=== PATIENT | female | born 1955 | race Caucasian/White ===

== ENCOUNTER 2017-11-10 17:24 | Emergency (ER) | payer OTHER, BC ==
[2017-11-10 20:48] LABS: BASO # 0.1 10^3/uL (0.0-0.2); BASO % 0.6 % (0.0-1.0); EOS # 0.2 10^3/uL (0.0-0.50); EOS % 2.7 % (0.0-3.0); HEMATOCRIT 40.5 % (36.0-47.0); HEMOGLOBIN 13.5 g/dl (12.0-16.0); IMMATURE GRANULOCYTE % 0.4 % (0-0); LYMPH # 1.5 10^3/uL (1.5-4.5); LYMPH % 17.9 % (24.0-44.0); MEAN CORPUSCULAR HEMOGLOBIN 28.8 pg (27.0-33.0); MEAN CORPUSCULAR HGB CONC 33.3 g/dl (32.0-36.5); MEAN CORPUSCULAR VOLUME 86.4 fl (80.0-96.0); MONO # 0.6 10^3/uL (0.0-0.8); MONO % 6.6 % (0.0-5.0); NEUTROPHILS # 6.1 10^3/uL (1.8-7.7); NEUTROPHILS % 71.8 % (36.0-66.0); PLATELET COUNT, AUTOMATED 262 10^3/uL (150-450); RED BLOOD COUNT 4.69 10^6/uL (4.00-5.40); RED CELL DISTRIBUTION WIDTH 13.3 % (11.5-14.5); WHITE BLOOD COUNT 8.4 10^3/uL (4.0-10.0)
[2017-11-10 21:23] LABS: ALBUMIN/GLOBULIN RATIO 1.14 (1.00-1.93); ALKALINE PHOSPHATASE 99 U/L (45-117); ALT/SGPT 28 U/L (12-78); ANION GAP 5 MEQ/L (8-16); AST/SGOT 18 U/L (7-37); BILIRUBIN,DIRECT 0.1 MG/DL (0.0-0.2); BILIRUBIN,TOTAL 0.5 MG/DL (0.2-1.0); BLOOD UREA NITROGEN 17 MG/DL (7-18); CARBON DIOXIDE LEVEL 32 MEQ/L (21-32); CHLORIDE LEVEL 103 MEQ/L (98-107); CREATININE FOR GFR 0.68 MG/DL (0.55-1.02); GLOMERULAR FILTRATION RATE > 60.0 (>45); GLUCOSE, FASTING 115 MG/DL (80-110); LIPASE 80 U/L (73-393); POTASSIUM SERUM 3.8 MEQ/L (3.5-5.1); SODIUM LEVEL 140 MEQ/L (136-145); TOTAL PROTEIN 7.5 GM/DL (6.4-8.2)
[2017-11-10 21:55] LABS: BASO % 0.5 % (0.0-1.0); EOS # 0.2 10^3/uL (0.0-0.50); EOS % 2.2 % (0.0-3.0); HEMATOCRIT 40.6 % (36.0-47.0); HEMOGLOBIN 13.7 g/dl (12.0-16.0); IMMATURE GRANULOCYTE % 0.4 % (0-0); LYMPH # 1.3 10^3/uL (1.5-4.5); LYMPH % 15.5 % (24.0-44.0); MEAN CORPUSCULAR HEMOGLOBIN 28.7 pg (27.0-33.0); MEAN CORPUSCULAR HGB CONC 33.7 g/dl (32.0-36.5); MEAN CORPUSCULAR VOLUME 85.1 fl (80.0-96.0); MONO # 0.5 10^3/uL (0.0-0.8); MONO % 5.6 % (0.0-5.0); NEUTROPHILS # 6.3 10^3/uL (1.8-7.7); NEUTROPHILS % 75.8 % (36.0-66.0); PLATELET COUNT, AUTOMATED 268 10^3/uL (150-450); RED BLOOD COUNT 4.77 10^6/uL (4.00-5.40); RED CELL DISTRIBUTION WIDTH 13.2 % (11.5-14.5); WHITE BLOOD COUNT 8.3 10^3/uL (4.0-10.0)
[2017-11-10] MEDS: ONDANSETRON 4MG/2ML VIAL (J2405) IV (22:05)
[2017-11-10] MEDS: MORPHINE 2 MG/ML 1ML SYRINGE IV ×2 (22:05→23:45)
[2017-11-10 22:09] LABS: INR 0.96; PROTHROMBIN TIME 12.9 SECONDS (12.4-14.5)
[2017-11-10] MEDS: NS 1,000 ML IV (22:11)
[2017-11-10 22:19] LABS: ALBUMIN 3.9 GM/DL (3.2-5.2); ALKALINE PHOSPHATASE 98 U/L (45-117); ALT/SGPT 27 U/L (12-78); AMYLASE 36 U/L (25-115); ANION GAP 6 MEQ/L (8-16); AST/SGOT 18 U/L (7-37); BILIRUBIN,DIRECT < 0.1 MG/DL (0.0-0.2); BILIRUBIN,TOTAL 0.5 MG/DL (0.2-1.0); BLOOD UREA NITROGEN 17 MG/DL (7-18); CALCIUM LEVEL 8.9 MG/DL (8.8-10.2); CARBON DIOXIDE LEVEL 29 MEQ/L (21-32); CHLORIDE LEVEL 104 MEQ/L (98-107); CK-MB VALUE MASS 1.3 NG/ML (0.0-3.6); CPK CREATINE PHOSPHOKINASE 72 U/L (26-192); CREATININE FOR GFR 0.62 MG/DL (0.55-1.02); GLOMERULAR FILTRATION RATE > 60.0 (>45); GLUCOSE, FASTING 117 MG/DL (80-110); LIPASE 81 U/L (73-393); POTASSIUM SERUM 3.3 MEQ/L (3.5-5.1); SODIUM LEVEL 139 MEQ/L (136-145); TOTAL PROTEIN 7.8 GM/DL (6.4-8.2); TROPONIN I 0.11 NG/ML (< 0.10)
[2017-11-10] MEDS: ASPIRIN 325 MG TAB PO (23:04)
[2017-11-11] MEDS ORDERED: HYDROmorphone HCL 1 MG/ML SYRINGE (J1170) As Ordered (02:07)
[2017-11-11 03:15] LABS: CK-MB VALUE MASS 1.2 NG/ML (0.0-3.6); CPK CREATINE PHOSPHOKINASE 62 U/L (26-192); MB/CK RELATIVE INDEX 1.93 (< OR =4)
== END 2017-11-11 04:09 | disposition home or self-care (01) ==
LOC: M ED 11-11 04:09
DX: K80.20 Calculus of gallbladder without cholecystitis without obstruction (principal); R11.0 Nausea; J45.909 Unspecified asthma, uncomplicated; R00.1 Bradycardia, unspecified; Z79.899 Other long term (current) drug therapy; Z79.51 Long term (current) use of inhaled steroids; Z88.1 Allergy status to other antibiotic agents; Z88.8 Allergy status to other drugs, medicaments and biological substances
CPT/HCPCS: J1170

== ENCOUNTER 2017-12-11 19:46 | Inpatient (IN) | payer OTHER ==
[2017-12-11] MEDS: ONDANSETRON 4MG/2ML VIAL (J2405) IV ×2 (20:28→22:58)
[2017-12-11] MEDS: MORPHINE 4 MG/ML 1ML VIAL (J2270) IV (20:28)
[2017-12-11 20:34] LABS: BASO # 0.1 10^3/uL (0.0-0.2); BASO % 0.7 % (0.0-1.0); EOS # 0.2 10^3/uL (0.0-0.50); EOS % 3.5 % (0.0-3.0); HEMATOCRIT 42.1 % (36.0-47.0); HEMOGLOBIN 14.5 g/dl (12.0-16.0); IMMATURE GRANULOCYTE % 0.4 % (0-3.0); LYMPH # 1.6 10^3/uL (1.5-4.5); LYMPH % 23.1 % (24.0-44.0); MEAN CORPUSCULAR HEMOGLOBIN 29.1 pg (27.0-33.0); MEAN CORPUSCULAR HGB CONC 34.4 g/dl (32.0-36.5); MEAN CORPUSCULAR VOLUME 84.4 fl (80.0-96.0); MONO # 0.6 10^3/uL (0.0-0.8); NEUTROPHILS # 4.4 10^3/uL (1.8-7.7); NEUTROPHILS % 63.3 % (36.0-66.0); PLATELET COUNT, AUTOMATED 305 10^3/uL (150-450); RED BLOOD COUNT 4.99 10^6/uL (4.00-5.40); RED CELL DISTRIBUTION WIDTH 14.1 % (11.5-14.5); WHITE BLOOD COUNT 6.9 10^3/uL (4.0-10.0)
[2017-12-11 20:58] LABS: ALKALINE PHOSPHATASE 271 U/L (45-117); ALT/SGPT 476 U/L (12-78); ANION GAP 11 MEQ/L (8-16); AST/SGOT 199 U/L (7-37); BILIRUBIN,DIRECT 3.5 MG/DL (0.0-0.2); BLOOD UREA NITROGEN 17 MG/DL (7-18); CALCIUM LEVEL 9.9 MG/DL (8.8-10.2); CARBON DIOXIDE LEVEL 26 MEQ/L (21-32); CHLORIDE LEVEL 99 MEQ/L (98-107); CREATININE FOR GFR 0.83 MG/DL (0.55-1.30); GLOMERULAR FILTRATION RATE > 60.0 (>45); GLUCOSE, FASTING 133 MG/DL (70-100); LIPASE 75 U/L (73-393); POTASSIUM SERUM 3.5 MEQ/L (3.5-5.1); SODIUM LEVEL 136 MEQ/L (136-145)
[2017-12-11 21:03] LABS: BILIRUBIN,TOTAL 4.4 MG/DL (0.2-1.0)
[2017-12-12] MEDS ORDERED: MORPHINE 4 MG/ML 1ML VIAL (J2270) IV (00:45)
[2017-12-12] MEDS: AMPICILLIN SOD/SULBACTAM SOD 3 GM in D5W MINI-BAG PLUS 100 ML IV ×4 (02:03→20:00)
[2017-12-12] MEDS: LR 1,000 ML IV ×2 (03:49→13:06)
[2017-12-12] MEDS: LEVOTHYROXINE 150MCG TABLET (0.15MG) PO (06:25)
[2017-12-12 08:11] LABS: ALBUMIN 3.3 GM/DL (3.2-5.2); ALBUMIN/GLOBULIN RATIO 1.03 (1.00-1.93); ALKALINE PHOSPHATASE 216 U/L (45-117); ALT/SGPT 387 U/L (12-78); ANION GAP 10 MEQ/L (8-16); AST/SGOT 164 U/L (7-37); BILIRUBIN,TOTAL 2.6 MG/DL (0.2-1.0); BLOOD UREA NITROGEN 17 MG/DL (7-18); CALCIUM LEVEL 8.7 MG/DL (8.8-10.2); CARBON DIOXIDE LEVEL 30 MEQ/L (21-32); CHLORIDE LEVEL 100 MEQ/L (98-107); CREATININE FOR GFR 0.71 MG/DL (0.55-1.30); GLOMERULAR FILTRATION RATE > 60.0 (>45); GLUCOSE, FASTING 100 MG/DL (70-100); SODIUM LEVEL 140 MEQ/L (136-145); TOTAL PROTEIN 6.5 GM/DL (6.4-8.2)
[2017-12-12] MEDS: ADVAIR HFA 230/21MCG INHALER INH (09:00)
[2017-12-12] MEDS: ACETAMINOPHEN TAB 650MG DOSE (2X325MG) PO (13:15)
[2017-12-12] MEDS: ONDANSETRON 4MG/2ML VIAL (J2405) IV (19:59)
[2017-12-12] MEDS: KETOROLAC 30 MG/ML VIAL (J1885) IV (19:59)
[2017-12-12] MEDS: MORPHINE 4 MG/ML 1ML VIAL (J2270) IV (21:25)
[2017-12-13] MEDS: LR 1,000 ML IV ×4 (02:11→17:15)
[2017-12-13] MEDS: AMPICILLIN SOD/SULBACTAM SOD 3 GM in D5W MINI-BAG PLUS 100 ML IV ×4 (02:11→20:50)
[2017-12-13] MEDS: METOCLOPRAMIDE INJ 10MG/2ML VIAL (J2765) IV (02:23)
[2017-12-13] MEDS: LEVOTHYROXINE 150MCG TABLET (0.15MG) PO (06:51)
[2017-12-13] MEDS: ADVAIR HFA 230/21MCG INHALER INH (08:10)
[2017-12-13 08:34] LABS: HEMATOCRIT 40.1 % (36.0-47.0); HEMOGLOBIN 13.3 g/dl (12.0-16.0); MEAN CORPUSCULAR HEMOGLOBIN 28.7 pg (27.0-33.0); MEAN CORPUSCULAR HGB CONC 33.2 g/dl (32.0-36.5); MEAN CORPUSCULAR VOLUME 86.4 fl (80.0-96.0); PLATELET COUNT, AUTOMATED 239 10^3/uL (150-450); RED BLOOD COUNT 4.64 10^6/uL (4.00-5.40)
[2017-12-13 09:00] LABS: ALBUMIN 3.2 GM/DL (3.2-5.2); ALBUMIN/GLOBULIN RATIO 0.97 (1.00-1.93); ALKALINE PHOSPHATASE 243 U/L (45-117); ALT/SGPT 366 U/L (12-78); ANION GAP 8 MEQ/L (8-16); AST/SGOT 180 U/L (7-37); BLOOD UREA NITROGEN 15 MG/DL (7-18); CALCIUM LEVEL 8.8 MG/DL (8.8-10.2); CARBON DIOXIDE LEVEL 32 MEQ/L (21-32); CHLORIDE LEVEL 102 MEQ/L (98-107); GLOMERULAR FILTRATION RATE > 60.0 (>45); GLUCOSE, FASTING 91 MG/DL (70-100); POTASSIUM SERUM 3.4 MEQ/L (3.5-5.1); SODIUM LEVEL 142 MEQ/L (136-145); TOTAL PROTEIN 6.5 GM/DL (6.4-8.2)
[2017-12-13] MEDS: ONDANSETRON 4MG/2ML VIAL (J2405) IV (09:20)
[2017-12-13] MEDS: MORPHINE 4 MG/ML 1ML VIAL (J2270) IV (09:21)
[2017-12-13] MEDS ORDERED: SCOPOLAMINE 1MG TRANSDERMAL PATCH As Ordered (15:37)
[2017-12-13] MEDS: SCOPOLAMINE 1MG TRANSDERMAL PATCH TOP (15:56)
[2017-12-13] MEDS ORDERED: fentaNYL 100 MCG/2 ML INJECTION (J3010) As Ordered (16:11)
[2017-12-13] MEDS ORDERED: ROCURONIUM BROMIDE 50 MG/5 ML VIAL As Ordered (16:11)
[2017-12-13] MEDS ORDERED: PROPOFOL 200 MG/20 ML VIAL As Ordered (16:11)
[2017-12-13] MEDS ORDERED: MIDAZOLAM INJ 2 MG/2 ML VIAL (J2250) As Ordered (16:11)
[2017-12-13] MEDS ORDERED: LIDOCAINE 2% INJ 100 MG/5 ML SDV (FOR ANES.) As Ordered (16:11)
[2017-12-13] MEDS ORDERED: SUCCINYLCHOLINE 100 MG/5 ML SYRINGE (J0330) As Ordered ×2 (16:12→16:24)
[2017-12-13] MEDS: ISOVUE-300 61% 50ML VIAL (Q9967) As Ordered (16:24)
[2017-12-13] MEDS ORDERED: ONDANSETRON 4MG/2ML VIAL (J2405) As Ordered (16:40)
[2017-12-13] MEDS ORDERED: NEOSTIGMINE 10 MG/10 ML VIAL (J2710) As Ordered (16:40)
[2017-12-13] MEDS ORDERED: GLYCOPYRROLATE INJ 0.2 MG/ML 2 ML VIAL As Ordered (16:40)
[2017-12-13] MEDS ORDERED: PERCOCET 5MG/325MG TAB PO (17:15)
[2017-12-13] MEDS ORDERED: fentaNYL 100 MCG/2 ML INJECTION (J3010) IV (17:15)
[2017-12-13] MEDS ORDERED: METOCLOPRAMIDE INJ 10MG/2ML VIAL (J2765) IV (17:15)
[2017-12-13] MEDS ORDERED: ONDANSETRON 4MG/2ML VIAL (J2405) IV (17:15)
[2017-12-13] MEDS ORDERED: KETOROLAC 30 MG/ML VIAL (J1885) As Ordered (17:29)
[2017-12-13] MEDS: KETOROLAC 30 MG/ML VIAL (J1885) IV (17:45)
[2017-12-14] MEDS: LR 1,000 ML IV ×5 (00:42→21:46)
[2017-12-14] MEDS: AMPICILLIN SOD/SULBACTAM SOD 3 GM in D5W MINI-BAG PLUS 100 ML IV ×4 (02:59→20:19)
[2017-12-14] MEDS: LEVOTHYROXINE 150MCG TABLET (0.15MG) PO (06:15)
[2017-12-14] MEDS: ADVAIR HFA 230/21MCG INHALER INH (07:54)
[2017-12-14] MEDS: ONDANSETRON 4MG/2ML VIAL (J2405) IV (08:19)
[2017-12-14 08:44] LABS: ALBUMIN/GLOBULIN RATIO 0.91 (1.00-1.93); ALKALINE PHOSPHATASE 246 U/L (45-117); ALT/SGPT 341 U/L (12-78); ANION GAP 8 MEQ/L (8-16); AST/SGOT 189 U/L (7-37); BILIRUBIN,TOTAL 2.9 MG/DL (0.2-1.0); BLOOD UREA NITROGEN 18 MG/DL (7-18); CALCIUM LEVEL 8.8 MG/DL (8.8-10.2); CARBON DIOXIDE LEVEL 32 MEQ/L (21-32); CHLORIDE LEVEL 101 MEQ/L (98-107); CREATININE FOR GFR 0.58 MG/DL (0.55-1.30); GLOMERULAR FILTRATION RATE > 60.0 (>45); GLUCOSE, FASTING 96 MG/DL (70-100); POTASSIUM SERUM 3.4 MEQ/L (3.5-5.1); SODIUM LEVEL 141 MEQ/L (136-145); TOTAL PROTEIN 6.3 GM/DL (6.4-8.2)
[2017-12-15] MEDS: AMPICILLIN SOD/SULBACTAM SOD 3 GM in D5W MINI-BAG PLUS 100 ML IV ×4 (01:57→20:07)
[2017-12-15] MEDS: LEVOTHYROXINE 150MCG TABLET (0.15MG) PO (05:29)
[2017-12-15] MEDS: LR 1,000 ML IV ×2 (07:57→16:42)
[2017-12-15 08:24] LABS: HEMATOCRIT 35.8 % (36.0-47.0); HEMOGLOBIN 11.7 g/dl (12.0-16.0); MEAN CORPUSCULAR HGB CONC 32.7 g/dl (32.0-36.5); MEAN CORPUSCULAR VOLUME 88.6 fl (80.0-96.0); PLATELET COUNT, AUTOMATED 212 10^3/uL (150-450); RED BLOOD COUNT 4.04 10^6/uL (4.00-5.40); RED CELL DISTRIBUTION WIDTH 14.6 % (11.5-14.5); WHITE BLOOD COUNT 4.4 10^3/uL (4.0-10.0)
[2017-12-15 08:56] LABS: ALBUMIN 2.8 GM/DL (3.2-5.2); ALKALINE PHOSPHATASE 219 U/L (45-117); ALT/SGPT 312 U/L (12-78); ANION GAP 5 MEQ/L (8-16); AST/SGOT 167 U/L (7-37); BILIRUBIN,TOTAL 1.4 MG/DL (0.2-1.0); BLOOD UREA NITROGEN 17 MG/DL (7-18); CALCIUM LEVEL 8.2 MG/DL (8.8-10.2); CARBON DIOXIDE LEVEL 34 MEQ/L (21-32); CHLORIDE LEVEL 104 MEQ/L (98-107); CREATININE FOR GFR 0.65 MG/DL (0.55-1.30); GLOMERULAR FILTRATION RATE > 60.0 (>45); GLUCOSE, FASTING 103 MG/DL (70-100); POTASSIUM SERUM 3.1 MEQ/L (3.5-5.1); SODIUM LEVEL 143 MEQ/L (136-145); TOTAL PROTEIN 6.3 GM/DL (6.4-8.2)
[2017-12-15] MEDS: ADVAIR HFA 230/21MCG INHALER INH (09:51)
[2017-12-15] MEDS: hydroCHLOROthiazide 25 MG TAB PO (16:52)
[2017-12-15] MEDS: POTASSIUM CHLORIDE 10 MEQ SR TABLET PO ×2 (19:20→22:05)
[2017-12-16] MEDS: LR 1,000 ML IV ×2 (00:03→16:07)
[2017-12-16] MEDS: AMPICILLIN SOD/SULBACTAM SOD 3 GM in D5W MINI-BAG PLUS 100 ML IV ×4 (02:38→20:22)
[2017-12-16] MEDS: LEVOTHYROXINE 150MCG TABLET (0.15MG) PO (06:29)
[2017-12-16] MEDS: ADVAIR HFA 230/21MCG INHALER INH (08:10)
[2017-12-16] MEDS: hydroCHLOROthiazide 25 MG TAB PO (09:47)
[2017-12-16] MEDS ORDERED: SCOPOLAMINE 1MG TRANSDERMAL PATCH As Ordered (12:39)
[2017-12-16] MEDS: SCOPOLAMINE 1MG TRANSDERMAL PATCH TOP (13:00)
[2017-12-16] MEDS ORDERED: SEVOFLURANE INHAL SOLN 250 ML BTL As Ordered (13:03)
[2017-12-16] MEDS ORDERED: MIDAZOLAM INJ 2 MG/2 ML VIAL (J2250) As Ordered (13:03)
[2017-12-16] MEDS ORDERED: ROCURONIUM BROMIDE 50 MG/5 ML VIAL As Ordered ×2 (13:03→13:12)
[2017-12-16] MEDS ORDERED: dexameTHASONE 4 MG/ML 1ML VIAL (J1100) As Ordered ×2 (13:03→13:04)
[2017-12-16] MEDS ORDERED: fentaNYL 250 MCG/5 ML INJECTION (J3010) As Ordered (13:03)
[2017-12-16] MEDS ORDERED: PROPOFOL 200 MG/20 ML VIAL As Ordered (13:03)
[2017-12-16] MEDS ORDERED: METOCLOPRAMIDE INJ 10MG/2ML VIAL (J2765) As Ordered (13:03)
[2017-12-16] MEDS ORDERED: GLYCOPYRROLATE INJ 0.2 MG/ML 2 ML VIAL As Ordered ×2 (13:05)
[2017-12-16] MEDS ORDERED: KETOROLAC 60 MG/2 ML VIAL (J1885) As Ordered (13:05)
[2017-12-16] MEDS ORDERED: NEOSTIGMINE 10 MG/10 ML VIAL (J2710) As Ordered (13:05)
[2017-12-16] MEDS ORDERED: ONDANSETRON 4MG/2ML VIAL (J2405) As Ordered (13:05)
[2017-12-16] MEDS ORDERED: DESFLURANE 240 ML INHALANT As Ordered (13:51)
[2017-12-16] MEDS ORDERED: LIDOCAINE 2% INJ 100 MG/5 ML SDV (FOR ANES.) As Ordered (14:14)
[2017-12-16] MEDS: BUPIVACAINE HCL 0.25% 30 ML VIAL As Ordered (14:33)
[2017-12-16] MEDS ORDERED: HYDROmorphone HCL 1 MG/ML SYRINGE (J1170) IV (15:15)
[2017-12-16] MEDS ORDERED: NORCO, ANEXSIA 5/325MG TABLET (HYDROcodone/ACETAMINOPHEN) PO (15:15)
[2017-12-16] MEDS ORDERED: ONDANSETRON 4MG/2ML VIAL (J2405) IV (15:15)
[2017-12-16] MEDS ORDERED: fentaNYL 100 MCG/2 ML INJECTION (J3010) IV (15:15)
[2017-12-16] MEDS ORDERED: PERCOCET 5MG/325MG TAB PO (15:15)
[2017-12-16] MEDS: KETOROLAC 30 MG/ML VIAL (J1885) IV (16:05)
[2017-12-17] MEDS: AMPICILLIN SOD/SULBACTAM SOD 3 GM in D5W MINI-BAG PLUS 100 ML IV ×2 (01:48→08:33)
[2017-12-17] MEDS: LEVOTHYROXINE 150MCG TABLET (0.15MG) PO (06:04)
[2017-12-17 07:12] LABS: ALBUMIN 2.9 GM/DL (3.2-5.2); ALBUMIN/GLOBULIN RATIO 0.83 (1.00-1.93); ALKALINE PHOSPHATASE 185 U/L (45-117); ALT/SGPT 240 U/L (12-78); AST/SGOT 84 U/L (7-37); BILIRUBIN,DIRECT 0.5 MG/DL (0.0-0.2); BILIRUBIN,TOTAL 0.9 MG/DL (0.2-1.0); TOTAL PROTEIN 6.4 GM/DL (6.4-8.2)
[2017-12-17] MEDS: ADVAIR HFA 230/21MCG INHALER INH (08:27)
[2017-12-17] MEDS: hydroCHLOROthiazide 25 MG TAB PO (08:33)
== END 2017-12-17 13:20 | disposition home or self-care (01) | DRG 419 ==
LOC: M ED INP 12-12 00:43 → M PED 12-12 03:30 → M ED 19:46
PROC: 0FC98ZZ Extirpation of Matter from Common Bile Duct, Via Natural or Artificial Opening Endoscopic (ICD-10-PCS; 2017-12-13 07:30)
PROC: 0FT44ZZ Resection of Gallbladder, Percutaneous Endoscopic Approach (ICD-10-PCS; principal; 2017-12-13 15:59)
DX: K80.71 Calculus of gallbladder and bile duct without cholecystitis with obstruction (principal); Z88.1 Allergy status to other antibiotic agents; Z88.8 Allergy status to other drugs, medicaments and biological substances; Z79.899 Other long term (current) drug therapy; I10 Essential (primary) hypertension; E03.9 Hypothyroidism, unspecified; E66.9 Obesity, unspecified; J45.909 Unspecified asthma, uncomplicated

== ENCOUNTER 2018-01-04 10:52 | Emergency (ER) | payer OTHER ==
[2018-01-04] MEDS: NS 1,000 ML IV (11:10)
[2018-01-04 11:36] LABS: BASO # 0.1 10^3/uL (0.0-0.2); BASO % 0.7 % (0.0-1.0); EOS # 0.3 10^3/uL (0.0-0.50); HEMATOCRIT 38.4 % (36.0-47.0); IMMATURE GRANULOCYTE % 0.4 % (0-3.0); LYMPH # 1.3 10^3/uL (1.5-4.5); LYMPH % 19.2 % (24.0-44.0); MEAN CORPUSCULAR HEMOGLOBIN 29.1 pg (27.0-33.0); MEAN CORPUSCULAR HGB CONC 33.9 g/dl (32.0-36.5); MEAN CORPUSCULAR VOLUME 86.1 fl (80.0-96.0); MONO # 0.5 10^3/uL (0.0-0.8); MONO % 7.2 % (0.0-5.0); NEUTROPHILS # 4.6 10^3/uL (1.8-7.7); NEUTROPHILS % 67.5 % (36.0-66.0); PLATELET COUNT, AUTOMATED 251 10^3/uL (150-450); RED BLOOD COUNT 4.46 10^6/uL (4.00-5.40); RED CELL DISTRIBUTION WIDTH 13.5 % (11.5-14.5); WHITE BLOOD COUNT 6.8 10^3/uL (4.0-10.0)
[2018-01-04 11:52] LABS: INR 0.94; PROTHROMBIN TIME 12.7 SECONDS (12.4-14.5)
[2018-01-04 12:00] LABS: LACTIC ACID SEPSIS PROTOCOL 1.7 MMOL/L (0.4-2.0)
[2018-01-04 12:02] LABS: ALBUMIN 3.5 GM/DL (3.2-5.2); ALKALINE PHOSPHATASE 132 U/L (45-117); ALT/SGPT 44 U/L (12-78); ANION GAP 7 MEQ/L (8-16); AST/SGOT 45 U/L (7-37); BILIRUBIN,DIRECT 0.3 MG/DL (0.0-0.2); BILIRUBIN,TOTAL 0.8 MG/DL (0.2-1.0); BLOOD UREA NITROGEN 20 MG/DL (7-18); CALCIUM LEVEL 9.1 MG/DL (8.8-10.2); CARBON DIOXIDE LEVEL 29 MEQ/L (21-32); CHLORIDE LEVEL 104 MEQ/L (98-107); CPK CREATINE PHOSPHOKINASE 111 U/L (26-192); CREATININE FOR GFR 0.68 MG/DL (0.55-1.30); GLOMERULAR FILTRATION RATE > 60.0 (>45); GLUCOSE, FASTING 106 MG/DL (70-100); LIPASE 81 U/L (73-393); POTASSIUM SERUM 3.6 MEQ/L (3.5-5.1); SODIUM LEVEL 140 MEQ/L (136-145); TOTAL PROTEIN 7.4 GM/DL (6.4-8.2); TROPONIN I 0.13 NG/ML (< 0.10)
[2018-01-04] MEDS ORDERED: ISOVUE-370 76% 100ML VIAL (Q9967) As Ordered (12:20)
[2018-01-04 13:54] LABS: CPK CREATINE PHOSPHOKINASE 113 U/L (26-192); TROPONIN I 0.13 NG/ML (< 0.10)
[2018-01-04 13:55] LABS: CK-MB VALUE MASS 1.9 NG/ML (0.0-3.6); MB/CK RELATIVE INDEX 1.68 (< OR =4)
[2018-01-04 17:40] LABS: TROPONIN I 0.12 NG/ML (< 0.10)
[2018-01-04 17:41] LABS: CK-MB VALUE MASS 1.6 NG/ML (0.0-3.6); CPK CREATINE PHOSPHOKINASE 88 U/L (26-192); MB/CK RELATIVE INDEX 1.81 (< OR =4)
== END 2018-01-04 17:58 | disposition home or self-care (01) ==
LOC: M ED 10:52
DX: R10.9 Unspecified abdominal pain (principal); R00.1 Bradycardia, unspecified; R79.89 Other specified abnormal findings of blood chemistry; K44.9 Diaphragmatic hernia without obstruction or gangrene; I10 Essential (primary) hypertension; J45.909 Unspecified asthma, uncomplicated; E07.9 Disorder of thyroid, unspecified; Z88.1 Allergy status to other antibiotic agents; Z88.8 Allergy status to other drugs, medicaments and biological substances; Z79.899 Other long term (current) drug therapy; Z79.51 Long term (current) use of inhaled steroids; Z98.890 Other specified postprocedural states
CPT/HCPCS: Q9967

== ENCOUNTER → 2019-01-25 | Outpatient (REF) | payer OTHER ==
[~2019-01-25] MED LIST: /HCTZ25TA PO; ACET-683 PO; ACET50TA PO; ADV500INH INH; ASPI81TA85 PO; EXCETAB80 PO; IBUP80TA PO; LEVO150T6 PO; LEVO25TABR PO; MULTTAB4 PO; SYNT150T PO; SYNT25TA PO; TUMS500C PO; VITMTA PO
--- NOTE | 2019-01-25 14:29 | REP ---
Clinical: annual screening. Comparison: 01/04/2018. 11/10/2017. Findings: A small 6 mm pulmonary nodule in the left lower lung zone represents a change from prior examinations and warrants further investigation. Remainder of lung maxwell are clear. Mediastinum and cardiac silhouette are normal. Skeletal structures are intact. Impression: Small 6 mm pulmonary nodule in the left lower lung zone represents a new finding and warrants contrast enhanced chest CT evaluation. Electronically Signed by Michele Boyer MD 01/25/2019 02:21 P
--- NOTE | 2019-01-25 14:48 | REPMRS ---
Patient History The patient states she has not had a clinical breast exam in over a year. Patient is postmenopausal. Family history of breast cancer at age 50 or over in maternal grandmother, colorectal cancer at age 50 or over in maternal grandmother. Taking unspecified hormones for 19 years. 3D TOMOSYNTHESIS WAS PERFORMED. Digital Mammo Screening Bilat: January 25, 2019 - Exam #: [id number] Bilateral CC and MLO view(s) were taken. Technologist: Janell Hernandez, Technologist Prior study comparison: October 27, 2016, bilateral digital mammo screening bilat performed at [facility]. November 21, 2013, bilateral digital mammo screening bilat performed at [facility]. FINDINGS: There are scattered fibroglandular densities. There has been no change in the appearance of the mammogram from the prior studies. There is a mild amount of residual fibroglandular tissue which is fairly symmetric. There is no interval development of dominant mass, architectural distortion, or clustered microcalcification suggestive of malignancy. Assessment: BI-RADS/ACR category 1 mammogram. Negative Mammogram. Recommendation Routine screening mammogram in 1 year (for women over age 40). This mammogram was interpreted with the aid of an FDA-approved computer-aided dectection system. Electronically Signed By: Carlos Laird MD 01/25/19 [id number]
[2019-01-25 15:08] LABS: HEMATOCRIT 37.4 % (36.0-47.0); HEMOGLOBIN 12.4 g/dl (12.0-15.5); MEAN CORPUSCULAR HGB CONC 33.2 g/dl (32.0-36.5); MEAN CORPUSCULAR VOLUME 84.4 fl (80.0-96.0); PLATELET COUNT, AUTOMATED 268 10^3/uL (150-450); RED BLOOD COUNT 4.43 10^6/uL (4.00-5.40); WHITE BLOOD COUNT 7.5 10^3/uL (4.0-10.0)
[2019-01-25 15:32] LABS: BLOOD UREA NITROGEN 20 MG/DL (7-18); CALCIUM LEVEL 8.7 MG/DL (8.8-10.2); CARBON DIOXIDE LEVEL 28 MEQ/L (21-32); CHLORIDE LEVEL 103 MEQ/L (98-107); CHOLESTEROL LEVEL 177 MG/DL (<200); CHOLESTEROL RISK RATIO 2.565 (<5); CREATININE FOR GFR 0.63 MG/DL (0.55-1.30); GLOMERULAR FILTRATION RATE > 60.0 (>45); GLUCOSE, FASTING 91 MG/DL (70-100); HDL CHOLESTEROL 69 MG/DL (>40); LDL CHOLESTEROL 78 MG/DL (<100); NON-HDL-C 108 MG/DL; POTASSIUM SERUM 3.7 MEQ/L (3.5-5.1); SODIUM LEVEL 139 MEQ/L (136-145); TRIGLYCERIDES LEVEL 151 MG/DL (<150)
--- NOTE | 2019-01-26 10:15 | ECGEPIP ---
Stationary ECG Study [facility] Test Date: 2019-01-25 Pat Name: SERJIO RG Department: Room: - Gender: F Orderly: MISAEL : 1955 Requested By: DICK CASTELLANO Order Number: [id number] Reading MD: Katerina Ziegler Measurements Intervals [place] Rate: 55 P: 57 VA: 168 QRS: -27 QRSD: 98 T: 43 QT: 442 QTc: 426 Interpretive Statements SINUS BRADYCARDIA WITH OCCASIONAL VENTRICULAR PREMATURE COMPLEXES BORDERLINE LEFT AXIS DEVIATION LOW QRS VOLTAGE IN PRECORDIAL LEADS MINIMAL CHANGE SINCE 01/04/18 Electronically Signed On 01-26-2019 10:15:22 EDT by Katerina Ziegler
== END ==
LOC: EDSTATUS 10:30 → M RAD 13:52
PROVIDERS: ATTEND Family Medicine
DX: Z02.89 Encounter for other administrative examinations (principal); Z12.4 Encounter for screening for malignant neoplasm of cervix; R91.8 Other nonspecific abnormal finding of lung field

== ENCOUNTER → 2019-01-25 | Outpatient (CLI) | payer OTHER ==
[2019-01-25 15:37] LABS: FREE T4 1.28 NG/DL (0.76-1.46); THYROID STIMULATING HORMONE 7.17 uIU/ML (0.358-3.740)
== END ==
LOC: M LAB 13:58
PROVIDERS: ATTEND Physician Assistant
DX: E89.0 Postprocedural hypothyroidism (principal)

== ENCOUNTER 2019-03-25 17:31 | Emergency (ER) | payer OTHER ==
[~2019-03-25] VITALS: Ht 170.2 cm; Wt 126.0 kg
[~2019-03-25 17:31] MED LIST changes: -/HCTZ25TA PO; -ACET50TA PO; +HYDR-3644 PO; +MAPA500T17 PO
[2019-03-25] MEDS ORDERED: IPRATROPIUM 0.5MG/ALBUTEROL 2.5MG INH SOL UD 3ML (DUONEB)(J7620) NEB ONE (18:00)
[2019-03-25] MEDS ORDERED: methylPREDNISolone INJ 125 MG/2 ML VIAL (J2930) IV ONE (18:00)
[2019-03-25] MEDS ORDERED: ALBUTEROL SULFATE 2.5 MG/0.5 ML INH NEB SOLN INH ONE (18:00)
--- NOTE | 2019-03-25 19:08 | REP ---
Clinical: Cough and fever . Comparison: 01/04/2018 . Technique: PA and lateral. Findings: The mediastinum and cardiac silhouette are normal. There is no evidence for consolidation. However, a very subtle 6 mm nodule in the left lower lobe cannot be excluded. No effusion. No pneumothorax. Skeletal structures intact. Impression: 1. No focal consolidation. 2. Cannot exclude a vague, subtle 6 mm nodule in the left lower lobe. Consider chest CT for further investigation. Electronically Signed by Michele Boyer MD 03/25/2019 07:01 P
[2019-03-25] MEDS ORDERED: AZITHROMYCIN 250 MG TAB PO ONE (19:15)
[2019-03-25] MEDS ORDERED: ALBU17IN2 INH (19:20)
[2019-03-25] MEDS ORDERED: ALBU83IN NEB (19:20)
[2019-03-25] MEDS ORDERED: PRED20TA PO (19:20)
[2019-03-25] MEDS ORDERED: ZITH250T PO (19:21)
[2019-03-25 19:42] VITALS: BP 161/69
--- NOTE | 2019-03-27 16:16 | ED PDOC ---
Post-Departure Follow-Up dr nisa meyers faxed formal report of cxr for fu jog Clyde Sauceda MD March 27, 2019 16:16
== END 2019-03-25 19:44 | disposition home or self-care (01) ==
LOC: M ED 17:31
DX: J45.901 Unspecified asthma with (acute) exacerbation (principal); R91.1 Solitary pulmonary nodule; R50.9 Fever, unspecified; I10 Essential (primary) hypertension; Z79.51 Long term (current) use of inhaled steroids; Z79.899 Other long term (current) drug therapy; Z88.1 Allergy status to other antibiotic agents; Z88.8 Allergy status to other drugs, medicaments and biological substances
CPT/HCPCS: 71046; 94640; 96374; 99284; J2930

== ENCOUNTER 2020-03-16 07:01 | Emergency (ER) | payer OTHER ==
[~2020-03-16] VITALS: Ht 170.2 cm; Wt 128.2 kg
[~2020-03-16 07:01] MED LIST changes: +ALBU83IN NEB; +PRED20TA PO; +PROV108A INH; +ZITH250T PO
[2020-03-16] MEDS ORDERED: ibuprofen 800 (07:09)
[2020-03-16 08:10] LABS: BASO # 0.1 10^3/uL (0.0-0.2); BASO % 0.5 % (0.0-1.0); EOS # 0.2 10^3/uL (0.0-0.5); EOS % 2.4 % (0.0-3.0); HEMATOCRIT 40.7 % (36.0-47.0); HEMOGLOBIN 13.2 g/dl (12.0-15.5); LYMPH # 1.6 10^3/uL (1.5-5.0); LYMPH % 16.6 % (24.0-44.0); MEAN CORPUSCULAR HEMOGLOBIN 26.9 pg (27.0-33.0); MEAN CORPUSCULAR HGB CONC 32.4 g/dl (32.0-36.5); MEAN CORPUSCULAR VOLUME 83.1 fl (80.0-96.0); MONO # 0.8 10^3/uL (0.0-0.8); MONO % 8.3 % (0.0-5.0); NEUTROPHILS # 6.8 10^3/uL (1.5-8.5); NEUTROPHILS % 71.8 % (36.0-66.0); PLATELET COUNT, AUTOMATED 289 10^3/uL (150-450); WHITE BLOOD COUNT 9.5 10^3/uL (4.0-10.0)
--- NOTE | 2020-03-16 08:11 | REP ---
Clinical: Shortness of breath . Comparison: 03/25/2019 . Findings: The mediastinum and cardiac silhouette are stable and within normal limits for portable technique. The lung maxwell are relatively clear without consolidation, effusion, or pneumothorax. A small vague nodular density in the left lower lobe is again identified and while nodule cannot be excluded, findings are felt to reflect chronic scarring at the lingula. Impression: 1. No focal consolidation or effusion. 2. Subtle opacity in the left lower lung zone is again noted and while this may reflect chronic scarring at the lingula, nodule cannot definitively be excluded. Consider short-term follow-up chest CT for further investigation. Electronically Signed by Michele Boyer MD 03/16/2020 08:02 A
[2020-03-16 08:27] LABS: BLOOD UREA NITROGEN 22 MG/DL (7-18); CALCIUM LEVEL 9.2 MG/DL (8.8-10.2); CARBON DIOXIDE LEVEL 28 MEQ/L (21-32); CHLORIDE LEVEL 101 MEQ/L (98-107); GLOMERULAR FILTRATION RATE > 60.0 (>45); GLUCOSE, FASTING 140 MG/DL (70-100); POTASSIUM SERUM 3.3 MEQ/L (3.5-5.1); SODIUM LEVEL 138 MEQ/L (136-145)
[2020-03-16] MEDS ORDERED: ACETAMINOPHEN 500 MG TAB PO ONE (09:15)
[2020-03-16 09:32] LABS: FREE T4 1.54 NG/DL (0.76-1.46)
[2020-03-16 10:13] VITALS: BP 126/83
[2020-03-16] MEDS ORDERED: PROAAER10 INH (10:13)
[2020-03-16] MEDS ORDERED: BACT800T5 PO (10:13)
[2020-03-16] MEDS ORDERED: PRED20TA PO (10:13)
--- NOTE | 2020-03-16 11:45 | REP ---
CT BRAIN WITHOUT CONTRAST: HISTORY: Dizziness. Tingling bilateral hands and bilateral legs. No comparison brain CT. FINDINGS: Preliminary digital lot porter radiograph is unremarkable. There is partial opacification of a right ethmoid and a left ethmoid air cell. Otherwise the paranasal sinuses appear clear as visualized. No bony calvarial lesion is seen. No intraorbital abnormalities appreciated. On soft tissue window settings, the lateral, third, and fourth ventricles are normal in size and position. Laird-white differentiation pattern is intact. There is punctate calcification of the basal ganglia bilaterally which is a normal variant. Minimal vascular calcification is noted. There is no evidence of acute infarction, hemorrhage, mass, or midline shift. No extra-axial fluid collection is seen. IMPRESSION: Minimal vascular calcification. Physiologic calcification of the basal ganglia. No acute intracranial abnormality. Electronically Signed by Papo Sandy MD 03/16/2020 04:54 P
--- NOTE | 2020-03-16 12:25 | REP ---
CT CHEST WITHOUT CONTRAST: CT chest performed without IV contrast and compared to prior studies, most recently, 02/01/2019. In the lingula again noted is an ill-defined nodular density with, what appears to be, adjacent linear fibrotic scarring. The nodular density has increased since prior studies. It measures approximately 1.1 x 1.5 x 1.0 cm. No new nodule is seen. There are other areas of minor fibrotic scarring bilaterally. There is no significant axillary or mediastinal adenopathy. The heart is normal in size. There is no pleural or pericardial effusion. Thoracic aorta is normal in caliber. There is a small hiatal hernia. The patient has had a prior cholecystectomy. A stable left adrenal nodule is present approximately 1.5 cm in maximum diameter. This is most consistent with an adenoma, particularly since average Hounsfield unit density measurements are in the single digits. There are degenerative changes of the spine. IMPRESSION: Increased focal nodular opacity in the lingula when compared to prior studies. The ill-defined nodular density has increased in size and now measures 1.1 x 1.5 x 1.0 cm. Although this could represent focal fibroatelectasis, I would recommend PET/CT and pulmonary consultation for further evaluation. Electronically Signed by Carlos Laird MD 03/16/2020 01:15 P
--- NOTE | 2020-03-16 14:41 | ED PDOC ---
Post-Departure Follow-Up dr paula faxed formal report of t chest for fu Clyde Solis MD March 16, 2020 14:41
--- NOTE | 2020-03-16 19:05 | ED PDOC ---
Post-Departure Follow-Up dr paula faxed formal report of ct head for fu Clyde Solis MD March 16, 2020 19:05
--- NOTE | 2020-03-17 07:09 | ECGEPIP ---
[facility] - ED Test Date: 2020-03-16 Pat Name: SERJIO RG Department: Room: - Gender: Female Monitoring Specialist: : 1955 Requested By: EFRAIN Snider PA-C Order Number: [id number] Reading MD: Lisbeth Guzman Measurements Intervals [place] Rate: 70 P: 28 PA: 176 QRS: -29 QRSD: 88 T: 44 QT: 397 QTc: 431 Interpretive Statements SINUS RHYTHM BORDERLINE LEFT AXIS DEVIATION LOW QRS VOLTAGE IN PRECORDIAL LEADS POSSIBLE LEFT VENTRICULAR HYPERTROPHY Electronically Signed on 03-17-2020 7:09:34 EDT by Lisbeth Guzman
== END 2020-03-16 10:25 | disposition home or self-care (01) ==
LOC: M ED 07:01
DX: R06.02 Shortness of breath (principal); R91.1 Solitary pulmonary nodule; N39.0 Urinary tract infection, site not specified; I10 Essential (primary) hypertension; J45.909 Unspecified asthma, uncomplicated; E03.9 Hypothyroidism, unspecified; R00.1 Bradycardia, unspecified; Q25.40 Congenital malformation of aorta unspecified; Z87.09 Personal history of other diseases of the respiratory system; Z87.19 Personal history of other diseases of the digestive system; Z79.899 Other long term (current) drug therapy; Z79.890 Hormone replacement therapy; Z88.1 Allergy status to other antibiotic agents; Z88.8 Allergy status to other drugs, medicaments and biological substances
CPT/HCPCS: 36415; 70450; 71045; 71250; 80048; 81001; 82375; 84439; 84443; 85025; 87088; 87186; 93005; 99284; U0002

== ENCOUNTER → 2020-04-14 | Outpatient (CLI) | payer OTHER ==
[~2020-04-14] MED LIST changes: +BACT800T5 PO; +PROAAER10 INH; +ibuprofen 800
--- NOTE | 2020-04-15 10:28 | REP ---
PET/CT: HISTORY: Lung nodule. COMPARISONS: Comparison chest CT study March 16, 2020. Comparison chest CT study February 01, 2019 is also reviewed. TECHNIQUE: Approximately 45 minutes following the intravenous injection of a 8.58 mCi dose of F-18 FDG, three-dimensional PET scintigraphy is acquired from the skull base to the proximal thighs. Triplanar noncontrast CT scanning is acquired through the same anatomic range for attenuation correction, and image registration with scan parameters optimized to minimize radiation exposure to the patient. PET scintigraphy and CT datasets were fused and displayed on a workstation with multiplanar and projection display capability. PET/CT FINDINGS: Head and neck soft tissues are unremarkable. There is an unusual pattern of hypermetabolic uptake in the thorax. The lingular nodule identified on previous CT studies is non hypermetabolic. Maximum standard uptake value is 2.08. However, there are multiple bilateral hilar and mediastinal hailey hypermetabolic foci of uptake. Most of these hailey foci are normal in size but moderately hypermetabolic. These range in avidity from a maximum standard uptake value of 5.772 a standard uptake value of 14.24. The most avid site is an enlarged anterior subcarinal lymph node. There is no significant adenopathy identified on CT study. Hailey hypermetabolic foci are distributed superiorly to the thoracic inlet just to the right of midline as well as in the pretracheal, AP window, subcarinal, and bilateral hilar regions. In the abdomen and pelvis, there is normal distribution of tracer. No abnormal hypermetabolic uptake is seen in the abdomen or pelvis. IMPRESSION: Hypermetabolic hailey uptake distributed throughout the hilar and mediastinal lymph nodes, as discussed above. The lingular nodular opacity is not hypermetabolic. It should be kept in mind that granulomatous disease such as sarcoidosis may show abnormal FDG uptake. Continued CT scanning followup is recommended if histologic sampling is not pursued. Electronically Signed by Papo Sandy MD 04/15/2020 05:11 P
== END ==
LOC: M PLARAD 14:40
PROVIDERS: ATTEND Internal Medicine Pulmonary Disease
DX: R91.1 Solitary pulmonary nodule (principal)

== ENCOUNTER → 2020-04-23 | Outpatient (REF) | payer OTHER ==
[~2020-04-23] MED LIST changes: +BREO1INH INH; +EXCETAB33 PO; +HYDR25TAB PO
[2020-04-23 17:57] LABS: PLATELET COUNT, AUTOMATED 298 10^3/uL (150-450)
[2020-04-23 18:00] LABS: INR 1.05; PARTIAL THROMBOPLASTIN TIME 37.5 SECONDS (25.0-38.4); PROTHROMBIN TIME 13.4 SECONDS (11.8-14.0)
== END ==
LOC: M LAB REF 16:38
PROVIDERS: ATTEND Internal Medicine Pulmonary Disease
DX: Z01.812 Encounter for preprocedural laboratory examination (principal)

== ENCOUNTER → 2020-04-23 | Outpatient (CLI) | payer OTHER ==
[~2020-04-23] MED LIST changes: -ASPI81TA85 PO; +ASPI81TA86 PO
[2020-04-23 11:48] LABS: FREE T4 1.83 NG/DL (0.76-1.46); THYROID STIMULATING HORMONE 0.464 uIU/ML (0.358-3.740)
== END ==
LOC: M LAB 10:45
PROVIDERS: ATTEND Physician Assistant
DX: E89.0 Postprocedural hypothyroidism (principal)

== ENCOUNTER → 2020-04-30 | Outpatient (CLI) | payer OTHER ==
[~2020-04-30] MED LIST changes: +ASPI81TA85 PO; -ASPI81TA86 PO
--- NOTE | 2020-04-30 10:31 | PFTRPT ---
Visit Date: 04/30/2020 Referring Doctor: Vik Mckeon D.O. Height: 67.00 Inches Weight: 288.00 Lbs BSA: 2.36 Diagnosis: R91.8 Spirometry: Pre and post bronchodilator study of excellent technical quality. Forced vital capacity reduced. FEV1 out of proportion. Obstructive index is, therefore, reduced. Flow Volume Loop: Expiratory limb of the flow volume loop does suggest flow rate limitation. No significant bronchodilator response is identified. Lung Volumes: Total lung capacity borderline elevated. Residual volume is in proportion. Diffusing Capacity: Diffusing capacity is normal and remains normal when corrected for alveolar volume. Hemoglobin: Hemoglobin acceptable at 12.7. Airway Mechanics: Airway resistance and conductance are normal. IMPRESSION: Mild obstructive ventilatory impairment with nonspecific bronchodilator response. Please correlate clinically. MTDD
--- NOTE | 2020-05-11 11:24 | PULFX ---
DATE OF PROCEDURE: 04/30/2020 ORDERED BY: Dr. Mckeon Spirometry: Pre and post bronchodilator study of excellent technical quality. Forced vital capacity reduced. FEV1 out of proportion. Obstructive index is, therefore, reduced. Flow Volume Loop: Expiratory limb of the flow volume loop does suggest flow rate limitation. No significant bronchodilator response is identified. Lung Volumes: Total lung capacity borderline elevated. Residual volume is in proportion. Diffusing Capacity: Diffusing capacity is normal and remains normal when corrected for alveolar volume. Hemoglobin: Hemoglobin acceptable at 12.7. Airway Mechanics: Airway resistance and conductance are normal. IMPRESSION: Mild obstructive ventilatory impairment with nonspecific bronchodilator response. Please correlate clinically.
== END ==
LOC: M CARPUL 04-23 10:39
PROVIDERS: ATTEND Internal Medicine Pulmonary Disease
DX: R91.8 Other nonspecific abnormal finding of lung field (principal)

== ENCOUNTER → 2020-05-03 | Outpatient (CLI) | payer OTHER | LOC: M LABSMTC 11:02 | PROVIDERS: ATTEND Anesthesiology | DX: Z03.818 Encounter for observation for suspected exposure to other biological agents ruled out (principal) | CPT/HCPCS: C9803; U0003 ==

== ENCOUNTER 2020-05-07 06:59 | Day surgery (SDC) | payer OTHER ==
[~2020-05-07] VITALS: Ht 170.2 cm; Wt 126.1 kg
[2020-05-07] MEDS ORDERED: LR 1,000 ML IV ONE (07:00)
[2020-05-07] MEDS ORDERED: CETACAINE SPRAY 5GM As Ordered ONE (08:15)
[2020-05-07] MEDS ORDERED: LIDOCAINE 1% SDV 30ML VIAL As Ordered ONE (08:17)
[2020-05-07] MEDS ORDERED: EPINEPHrine 1MG/10ML SYRINGE 1.5IN As Ordered ONE (08:17)
[2020-05-07] MEDS ORDERED: THROMBIN SOLN 20,000 UNITS KIT As Ordered ONE (08:17)
[2020-05-07] MEDS ORDERED: LIDOCAINE VISCOUS 2% SOLN 15ML UDC As Ordered ONE (08:18)
[2020-05-07] MEDS ORDERED: ONDANSETRON 4MG/2ML VIAL As Ordered ONE (08:21)
[2020-05-07] MEDS ORDERED: ROCURONIUM BROMIDE 50 MG/5 ML VIAL As Ordered ONE (08:21)
[2020-05-07] MEDS ORDERED: LIDOCAINE 2% 100MG/5ML SDV (FOR ANES.) As Ordered ONE (08:21)
[2020-05-07] MEDS ORDERED: propofoL 200 MG/20 ML VIAL As Ordered ONE (08:21)
[2020-05-07] MEDS ORDERED: SUGAMMADEX SODIUM 500 MG/5 ML VIAL (BRIDION) As Ordered ONE (08:21)
[2020-05-07] MEDS ORDERED: fentaNYL 100 MCG/2 ML INJECTION (J3010) As Ordered ONE (08:22)
[2020-05-07] MEDS ORDERED: MIDAZOLAM INJ 2MG/2ML VIAL (J2250 PER 1MG) As Ordered ONE (08:22)
[2020-05-07] MEDS ORDERED: SCOPOLAMINE 1MG TRANSDERMAL PATCH As Ordered ONE (08:39)
[2020-05-07] MEDS ORDERED: SCOPOLAMINE 1MG TRANSDERMAL PATCH TOP ONE (08:45)
[2020-05-07] MEDS ORDERED: dexameTHASONE 4 MG/ML 1ML VIAL (J1100 PER 1MG) As Ordered ONE (08:57)
[2020-05-07] MEDS ORDERED: fentaNYL 100 MCG/2 ML INJECTION (J3010) IV PRN (10:00)
[2020-05-07] MEDS ORDERED: LR 1,000 ML IV SCH (10:00)
[2020-05-07] MEDS ORDERED: ONDANSETRON 4MG/2ML VIAL IV PRN (10:00)
[2020-05-07] MEDS ORDERED: oxyCODONE 5MG TAB PO PRN (10:00)
[2020-05-07 10:55] VITALS: BP 161/78
--- NOTE | 2020-05-07 11:27 | REP ---
CHEST, SINGLE VIEW: COMPARISON: 03/16/2020 There is very mild cardiomegaly. There is no acute infiltrate. Lingular nodule again noted. The mediastinal silhouette is unchanged. IMPRESSION: No acute infiltrate. No pneumothorax. Electronically Signed by Carlos Laird MD 05/10/2020 10:16 P
--- NOTE | 2020-05-07 13:27 | RO ---
DATE OF PROCEDURE: 05/07/2020 PREOPERATIVE DIAGNOSES: Abnormal chest CT, mediastinal adenopathy. POSTOPERATIVE DIAGNOSES: Abnormal chest CT, mediastinal adenopathy. FINDINGS: Few areas of pitting in the airway. PROCEDURE: Bronchoscopy with endobronchial ultrasound, linear probe. PROCEDURIST: Vik Mckeon DO ANESTHESIA: General. Please refer to their records for details. ESTIMATED BLOOD LOSS: Less than 5 mL. SPECIMENS OBTAINED: Fine-needle aspiration (FNA) with subcarinal and left hilar nodes. DESCRIPTION OF PROCEDURE: After informed consent was reviewed with the patient in the preoperative area, she was brought back to operating room (OR) #3. Anesthesia was initiated, and she was intubated with an 8.5 endotracheal tube. The case was then handed over to me. Time-out was performed with two patient identifiers, identifying correct site, correct procedure, and correlating with radiology. Cetacaine spray was then used to anesthetize the airway, along with provide lubrication for the 1T190 scope that was then inserted into the endotracheal tube. Flora was fairly sharp. Trachea was midline. Right and left mainstem bronchi were normal. Right bronchus (RB) 1 through 3 was normal with typical anatomy. RBI was normal. RB 4 through 10 was normal without endobronchial lesions. Left bronchus (LB) 1 through 10 was normal with a few areas of pitting. Otherwise normal without endobronchial lesions. 1T190 bronchoscope was then removed. Linear endobronchial ultrasound was then inserted. The subcarinal area was viewed, and there was an approximately 7 mm fairly flat node, but it was fairly wide. It did have a central vessel. The architecture of the lymph node, however, was not completely round. It was somewhat irregular. FNA was obtained of this for cell block and RPMI if needed. I then went to the right hilar area, which had a small node approximately 2 mm by ultrasound. Left hilar node was much larger. Therefore, biopsies were taken of this lymph node. After adequate sampling, the endobronchial ultrasound was removed. 1T190 bronchoscope was reinserted to ensure hemostasis. All airways were clear. There was no evidence of bleeding. 1T190 bronchoscope was then removed. There were no obvious complications. The case was handed back to anesthesia. Postprocedure chest x-ray is still pending.
== END 2020-05-07 11:50 | disposition home or self-care (01) ==
LOC: M SDC 06:59
PROVIDERS: ATTEND Internal Medicine Pulmonary Disease
DX: I89.8 Other specified noninfective disorders of lymphatic vessels and lymph nodes (principal); I10 Essential (primary) hypertension; E03.9 Hypothyroidism, unspecified; J45.909 Unspecified asthma, uncomplicated; G43.909 Migraine, unspecified, not intractable, without status migrainosus; Z79.899 Other long term (current) drug therapy; Z88.1 Allergy status to other antibiotic agents; Z88.8 Allergy status to other drugs, medicaments and biological substances
CPT/HCPCS: 31652; 71045; 88173; 88305; J1100; J2250; J2405; J3010

== ENCOUNTER → 2020-12-01 | Outpatient (CLI) | payer OTHER ==
[~2020-12-01] MED LIST changes: -ASPI81TA85 PO; +ASPI81TA86 PO; +HYDR-3490 PO; -HYDR25TAB PO
== END ==
LOC: M LAB 16:45
PROVIDERS: ATTEND Physician Assistant
DX: N39.0 Urinary tract infection, site not specified (principal)

== ENCOUNTER → 2021-08-27 | Outpatient (REF) | LOC: M LABSMTC 10:11 | PROVIDERS: ATTEND Pediatrics | DX: Z02.89 Encounter for other administrative examinations (principal) ==

== ENCOUNTER → 2022-04-12 | Outpatient (REF) ==
[~2022-04-12] MED LIST changes: +ALBU2.5V10 NEB; -ALBU83IN NEB; +EXCETAB32 PO; -EXCETAB33 PO
[2022-04-12 13:06] LABS: APPEARANCE, URINE HAZY (CLEAR); BACTERIA, URINE AUTO NEGATIVE (NEGATIVE); BILIRUBIN, URINE AUTO NEGATIVE (NEGATIVE); BLOOD, URINE BLOOD NEGATIVE (NEGATIVE); COLOR, URINE AMBER (YELLOW); GLUCOSE, URINE (UA) AUTO NEGATIVE (NEGATIVE); KETONE, URINE AUTO TRACE mg/dL (NEGATIVE); LEUKOCYTE ESTERASE, URINE AUTO NEGATIVE (NEGATIVE); MUCUS, URINE SMALL (NEGATIVE); NITRITE, URINE AUTO NEGATIVE (NEGATIVE); PROTEIN, URINE AUTO NEGATIVE (NEGATIVE); RBC, URINE AUTO 0 /HPF (0-3); SPECIFIC GRAVITY URINE AUTO 1.025 (1.002-1.035); SQUAMOUS EPITHELIAL CELL UR AU 1 /HPF (0-6); WBC, URINE AUTO 0 /HPF (0-3)
[2022-04-12 13:10] LABS: HEMOGLOBIN 10.9 g/dl (12.0-15.5); MEAN CORPUSCULAR HGB CONC 32.1 g/dl (32.0-36.5); MEAN CORPUSCULAR VOLUME 84.4 fl (80.0-96.0); PLATELET COUNT, AUTOMATED 259 10^3/uL (150-450); RED BLOOD COUNT 4.03 10^6/uL (4.00-5.40); WHITE BLOOD COUNT 6.2 10^3/uL (4.0-10.0)
[2022-04-12 13:48] LABS: BLOOD UREA NITROGEN 16 MG/DL (7-18); CALCIUM LEVEL 9.5 MG/DL (8.8-10.2); CARBON DIOXIDE LEVEL 30 MEQ/L (21-32); CHLORIDE LEVEL 105 MEQ/L (98-107); CHOLESTEROL LEVEL 155 MG/DL (<200); CREATININE FOR GFR 0.67 MG/DL (0.55-1.30); GLOMERULAR FILTRATION RATE > 60.0 (>45); GLUCOSE, FASTING 94 MG/DL (70-100); HDL CHOLESTEROL 62 MG/DL (>40); LDL CHOLESTEROL 76 MG/DL (<100); NON-HDL-C 93 MG/DL; POTASSIUM SERUM 3.9 MEQ/L (3.5-5.1); SODIUM LEVEL 141 MEQ/L (136-145); TRIGLYCERIDES LEVEL 84 MG/DL (<150)
== END ==
LOC: M LAB 12:19
PROVIDERS: ATTEND Registered Nurse
DX: Z78.9 Other specified health status (principal)

== ENCOUNTER → 2022-04-13 | Outpatient (REF) | LOC: M WHC 07:42 | PROVIDERS: ATTEND Registered Nurse | DX: Z12.31 Encounter for screening mammogram for malignant neoplasm of breast (principal); Z78.0 Asymptomatic menopausal state; Z80.3 Family history of malignant neoplasm of breast; Z80.0 Family history of malignant neoplasm of digestive organs; Z92.29 Personal history of other drug therapy ==

== ENCOUNTER → 2023-04-17 | Outpatient (REF) | payer SELFPAY ==
[~2023-04-17] MED LIST changes: +ALBU6.7H6 INH; -PROV108A INH
[2023-04-17 18:11] LABS: PERCENT SATURATION 9.4 % (13.2-45.0)
[2023-04-17 18:27] LABS: FERRITIN 5.2 NG/ML (7.3-270.7)
== END ==
LOC: M LAB REF 16:14
PROVIDERS: ATTEND Internal Medicine
DX: D64.9 Anemia, unspecified (principal)

== ENCOUNTER → 2023-10-17 | Outpatient (CLI) | payer MEDICARE ==
[2023-10-17 13:40] LABS: PERCENT SATURATION 9.5 % (13.2-45.0)
[2023-10-17 13:43] LABS: FERRITIN 4.3 NG/ML (7.3-270.7)
== END ==
LOC: M WUC 09:27
PROVIDERS: ATTEND Internal Medicine
DX: D64.9 Anemia, unspecified (principal); M46.1 Sacroiliitis, not elsewhere classified; M16.0 Bilateral primary osteoarthritis of hip; M47.816 Spondylosis without myelopathy or radiculopathy, lumbar region

== ENCOUNTER → 2024-04-17 | Outpatient (REF) | payer MEDICARE | LOC: M LAB REF 12:08 | PROVIDERS: ATTEND Internal Medicine | DX: D64.9 Anemia, unspecified (principal) ==

== ENCOUNTER → 2024-10-15 | Outpatient (REF) | payer MEDICARE ==
[2024-10-15 18:02] LABS: PERCENT SATURATION 10.5 % (13.2-45.0)
[2024-10-15 18:04] LABS: FERRITIN 7.3 NG/ML (7.3-270.7)
== END ==
LOC: M LAB REF 17:36
PROVIDERS: ATTEND Internal Medicine
DX: D64.9 Anemia, unspecified (principal)